=== PATIENT | female | born 1945 | race Caucasian/White ===

== ENCOUNTER 2022-02-09 18:53 | Inpatient (IN) | payer OTHER ==
[~2022-02-09] VITALS: Ht 152.4 cm; Wt 68.0 kg
[~2022-02-09 18:53] MED LIST: CLINDAMYCIN HC150 MG; GLUCOTROL5 MG/BOTTL; HYZAAR 100/25 T1 TAB; IBUPROFEN800 MG; LIPITOR20 MG; NORVASC5 MG
--- NOTE | 2022-02-09 20:13 | NUR ---
SE RECIBE PACIENTE EN AMBULANCIA, ACOMPANADA DE PARAMEDICOS Y FAMILIAR. SE COLOCA POR PARAMEDICOS EN CAMA #2 AREA DE ICU #2. MIS GARCIA SUPERVISORA CONECTA A MONITOR CARDIACO CON SATUROMETRO. ESTA ORIENTA DE TRATAMIENTO JASON ORDEN MEDICA, PACIENTE REFIERE ENTENDER. MIS GARCIA SUPERVISORA, SHAY MUESTRAS, CANALIZA CON ANGIO # 20 EN BRAZO IZ Y ADMINISTRA MEDICAMENTO CON MEDIDAS ASEP- GEORGI CORRESPONDIENTES. AL LLEGAR NOTIFICA A TERAPIA RESPIRATORIA A LAS 7:30 PM PARA GASES ARTERIALES. SE INSERTA SONDA URINARIA CON MEDIDAS ASEPTICAS. PACIEN- TE CON CANALIZACION DE AMBULANCIA EN [facility]. SE ORIENTA FAMILIAR DE TRATAMIENTO Y NORMAS AREA DE CRITICO.REFIERE ENTENDER. PACIENTE CON ROBERT PATENTE A GRAVEDAD, NO PRESENTA EGRESO DE ORINA. SE NOTIFICA A LAS 8PM A PERSONAL DE TERAPIA RESPIRATORIA PARA ABG. PACIENTE CON BARANDAS ELEVADAS POR GONGORA SEGURIDAD. SE MONITOREA POR CAMBIOS SIGNIFICATIVOS.
[2022-02-09] MEDS ORDERED: ASPIRINA 81 MG. (20:37)
[2022-02-09] MEDS ORDERED: CALTRATE (20:37)
--- NOTE | 2022-02-09 22:13 | NUR ---
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 SE NOTIFICA A DR DUGAN PACIENTE CON B/P EN 65/40 Y DEXTRO EN 64 MG/DL. 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 PERSONAL DE ESCOLTA PASA PARA REALIZAR CT. SE NOTIFICA PACIENTE NO SE ENCUENTRA ESTABLE AL MOMENTO PARA REALIZAR CT.
--- NOTE | 2022-02-09 22:17 | NUR ---
SE TRASALADA PACIENTE POR ESCOLTA DE KACY, ADILSON OSCAR Y ADILSON BALLARD AL AREA DE CT PARA REALIZAR ESTUDIO. ES TRASLADADA CON OXIGENO DE TRANSPORTE EN CAMA.
[2022-02-10] MEDS ORDERED: LOSARTAN POTASS50 MG (13:29)
[2022-02-10] MEDS ORDERED: AMLODIPINE BESYL5 MG (13:29)
[2022-02-10] MEDS ORDERED: FAMOTIDINE20 MG (13:29)
[2022-02-10] MEDS ORDERED: GLIPIZIDE-METF1 EAC2 (13:30)
== END 2022-02-12 21:56 | disposition expired | DRG 871 ==
LOC: ER 18:53 → ICU-2 23:19
PROVIDERS: ADMIT Internal Medicine; ATTEND Internal Medicine
PROC: BW21ZZZ Computerized Tomography (CT Scan) of Abdomen and Pelvis (ICD-10-PCS; principal; 2022-02-09)
PROC: 02HV33Z Insertion of Infusion Device into Superior Vena Cava, Percutaneous Approach (ICD-10-PCS; 2022-02-10)
DX: A41.9 Sepsis, unspecified organism (principal); R57.1 Hypovolemic shock; R65.21 Severe sepsis with septic shock; E87.21 Acute metabolic acidosis; N17.8 Other acute kidney failure; J90 Pleural effusion, not elsewhere classified; D68.8 Other specified coagulation defects; R18.0 Malignant ascites; K72.90 Hepatic failure, unspecified without coma; I95.89 Other hypotension; R59.1 Generalized enlarged lymph nodes; K57.30 Diverticulosis of large intestine without perforation or abscess without bleeding; D25.9 Leiomyoma of uterus, unspecified; I11.9 Hypertensive heart disease without heart failure